=== PATIENT | female | born 1980 | race Caucasian/White ===

== ENCOUNTER → 2017-12-08 | Outpatient (CLI) | payer OTHER ==
[~2017-12-08] MED LIST: ASPI-650 PO; HYDR-3240 PO
== END | disposition home or self-care (01) ==
LOC: STAR 10:08
PROVIDERS: ATTEND Obstetrics & Gynecology Gynecology
DX: Z01.818 Encounter for other preprocedural examination (principal); D06.1 Carcinoma in situ of exocervix; N92.0 Excessive and frequent menstruation with regular cycle; D25.2 Subserosal leiomyoma of uterus; N39.9 Disorder of urinary system, unspecified; Z72.0 Tobacco use
CPT/HCPCS: 36415; 71046; 84703; 85014; 85018

== ENCOUNTER 2017-12-13 13:01 | Day surgery (SDC) | payer OTHER ==
[~2017-12-13] VITALS: Ht 160 cm; Wt 105.1 kg
[2017-12-13] MEDS ORDERED: IBUP-1223 PO (13:30)
[2017-12-13] MEDS ORDERED: ESTROGENS CONJUGATED VAG CRM 0.625MG/1G, 30GM ONE (13:40)
[2017-12-13] MEDS ORDERED: BUPIVACAINE/PF-EPI 0.25% 1:200K ONE (13:41)
[2017-12-13] MEDS ORDERED: FLUORESCEIN SODIUM 500 MG/5 ML ONE (13:41)
[2017-12-13] MEDS: LACTATED RINGERS 1,000 ML IV SCH ×2 (13:46→20:48)
[2017-12-13 14:21] LABS: HCG UR SG 1.021 (1.003-1.030)
[2017-12-13] MEDS ORDERED: MIDAZOLAM 1 MG/ML, 2ML ONE (15:25)
[2017-12-13] MEDS ORDERED: FENTANYL PF 250 MCG/5ML ONE (15:26)
[2017-12-13] MEDS ORDERED: PHENYLEPHRINE 10 MG/ML ONE (15:52)
[2017-12-13] MEDS ORDERED: EPHEDRINE 50 MG/ML, 1ML ONE (15:52)
[2017-12-13] MEDS ORDERED: LIDOCAINE 4%, 4 ML SYR/CANN TP ONE (15:52)
[2017-12-13] MEDS ORDERED: LIDOCAINE-MPF 2% ,5ML ONE (15:52)
[2017-12-13] MEDS ORDERED: ONDANSETRON ODT 8 MG PO PRN (16:30)
[2017-12-13] MEDS ORDERED: OXYcodone 5 MG/5 ML ORAL.SOL UDC PO PRN (16:30)
[2017-12-13] MEDS ORDERED: PROCHLORPERAZINE 5 MG/ML, 2ML IV PRN (16:30)
[2017-12-13] MEDS ORDERED: HYDROmorphone 1 MG/ML, 1ML IV PRN (16:30)
[2017-12-13] MEDS ORDERED: DIAZEPAM 5 MG/ML, 2ML IVPush PRN (16:30)
[2017-12-13] MEDS ORDERED: ACETAMINOPHEN 325 MG TABLET PO PRN (16:30)
[2017-12-13] MEDS ORDERED: FENTANYL PF 100 MCG/2ML IV PRN (16:30)
[2017-12-13] MEDS ORDERED: MEPERIDINE/PF 25MG/0.5ML IVPush PRN (16:30)
[2017-12-13] MEDS ORDERED: ONDANSETRON 2MG/ML, 2ML IV PRN (16:30)
[2017-12-13] MEDS ORDERED: MORPHINE SULFATE 4 MG/ML, 1ML IVPush PRN (16:30)
[2017-12-13] MEDS ORDERED: DEXAMETHASONE 4 MG/ML, 1ML ONE (17:03)
[2017-12-13] MEDS ORDERED: ROCURONIUM 10MG/ML,5ML ONE (17:03)
[2017-12-13] MEDS ORDERED: ONDANSETRON 2MG/ML, 2ML ONE (17:03)
[2017-12-13] MEDS ORDERED: NEOSTIGMINE 1 MG/ML, 10ML ONE (17:03)
[2017-12-13] MEDS ORDERED: GLYCOPYRROLATE 0.2MG/1ML, 5ML ONE (17:03)
[2017-12-13] MEDS ORDERED: SUCCINYLCHOLINE 20 MG/ML, 10ML ONE (17:03)
[2017-12-13] MEDS ORDERED: CEFAZOLIN 1,000 MG ONE (17:03)
[2017-12-13] MEDS ORDERED: PROPOFOL 10 MG/ML, 20ML ONE (17:03)
[2017-12-13] MEDS ORDERED: HYDROmorphone 2 MG/ML, 1ML ONE (17:13)
[2017-12-13] MEDS ORDERED: INDIGO CARMINE 0.8%, 5ML ONE (17:39)
[2017-12-13] MEDS ORDERED: ACETAMINOPHEN 650 MG/20.3 ML UDC ONE (18:39)
[2017-12-13] MEDS ORDERED: OXYcodone 5 MG/5 ML ORAL.SOL UDC ONE (18:40)
[2017-12-13] MEDS ORDERED: KETOROLAC 30 MG/1 ML IVPush SCH (20:30)
[2017-12-13] MEDS ORDERED: ONDANSETRON 2MG/ML, 2ML IVPush PRN (20:30)
[2017-12-13] MEDS: D5%-0.45% NACL 1,000 ML IV SCH (20:30)
[2017-12-13] MEDS: MORPHINE SULFATE 4 MG/ML, 1ML IVPush PRN ×2 (21:42→23:34)
[2017-12-13] MEDS ORDERED: KETOROLAC 30 MG/1 ML IVPush PRN (22:30)
[2017-12-13 23:42] VITALS: BP 113/68
[2017-12-14 03:01] VITALS: BP 111/69
[2017-12-14] MEDS: D5%-0.45% NACL 1,000 ML IV SCH (03:45)
[2017-12-14 08:18] VITALS: BP 127/60
[2017-12-14] MEDS ORDERED: HYDR-3653 PO (08:41)
== END 2017-12-14 11:20 | disposition home or self-care (01) ==
LOC: OUT 13:01 → 4NOR 19:50 → OUT 20:35 → 4NOR 20:36 → UNDOADMIN 20:36 → UNDODISIN 12-14 11:20
PROVIDERS: ATTEND Obstetrics & Gynecology Gynecology
DX: D25.0 Submucous leiomyoma of uterus (principal); D06.9 Carcinoma in situ of cervix, unspecified; G89.29 Other chronic pain; N80.0 Endometriosis of uterus; N83.12 Corpus luteum cyst of left ovary; Z87.440 Personal history of urinary (tract) infections
CPT/HCPCS: 36415; 58554; 81025; 85014; 85018; 88307; 88342; J0330; J0690; J1100; J1170; J1885; J2250; J2370; J2405; J2704; J2710; J3010; J3490; J7120; G0378; G0461